=== PATIENT | female | born 1985 | race Caucasian/White ===

== ENCOUNTER 2022-08-20 16:38 | Outpatient (CLI) | payer BC, OTHER, SELFPAY ==
--- NOTE | 2022-08-20 16:30 | RT.EKG_ITS ---
APPROVED REPORT Exam: Resting ECG Reason for Exam: palpitations Patient Location: O HR:75 bpm ECG Measurements Heart Rate 75 AXIS [place] 123 P 59 QRSd 85 QRS 61 QT 401 T -1 QTc 448 Conclusion Sinus rhythm...normal P axis, V-rate 50- 99 Borderline low voltage, extremity leads...all extremity leads <0.6mV
== END 2022-08-20 16:39 | disposition home or self-care (01) ==
LOC: DI.CM 16:39
PROVIDERS: Visit Provider Physician Assistant
DX: R00.2 Palpitations (principal)
CPT/HCPCS: 93010

== ENCOUNTER 2022-08-20 17:59 | Outpatient (REF) | payer BC, SELFPAY ==
[2022-08-20 21:38] LABS: Abs Immature Grans 0.04 10^3/uL (0.0-0.06); Absolute Basophil Count 0.05 10^3/uL (0.0-0.2); Absolute Eosinophil Count 0.03 10^3/uL (0.0-0.7); Absolute Lymphocyte Count 2.92 10^3/uL (1.2-3.4); Absolute Monocyte Count 0.68 10^3/uL (0.1-0.8); Absolute Neutrophil Count 5.23 10^3/uL (1.2-6.7); Basophils % 0.6; Eosinophils % 0.3; HCT 35.9 % (36.0-46.0); HGB 11.1 g/dL (11.2-15.7); Immature Grans % 0.4; Lymphocytes % 32.6; MCHC 30.9 % (32.0-36.0); MCV 81 fL (80-95); MPV 10.3 fL (8.0-11.0); Monocytes % 7.6; Neutrophils % 58.5; Platelet Count 452 10^3/uL (130-400); RBC 4.44 10^6/uL (3.93-5.22); RDW 16.3 % (11.7-14.6); RDW-SD 47.9 fL; WBC 8.95 10^3/uL (4.4-10.8)
[2022-08-20 22:37] LABS: ALT 36 U/L (14-59); AST 30 U/L (15-37); Albumin 3.6 g/dL (3.4-5.0); Alkaline Phosphatase 52 U/L (46-116); Anion Gap 6.7 mmol/L (3-11); BUN 13 mg/dL (7-18); Bilirubin, Total 0.1 mg/dL (0.2-1.0); CO2 31.3 mmol/L (21.0-32.0); CREATININE 1.1 mg/dL (0.55-1.02); Calcium 8.5 mg/dL (8.5-10.1); Chloride 102 mmol/L (98-107); Glucose 76 mg/dL (74-106); Potassium 3.9 mmol/L (3.5-5.1); Sodium 140 mmol/L (136-145); TSH (W/Ref FT4) 1.87 uIU/mL (0.36-3.74); Total Protein 7.4 g/dL (6.4-8.2)
== END 2022-08-20 18:00 | disposition home or self-care (01) ==
LOC: NCHCN 17:59
PROVIDERS: Visit Provider Physician Assistant
DX: R94.31 Abnormal electrocardiogram [ECG] [EKG] (principal); R00.2 Palpitations; Z79.899 Other long term (current) drug therapy
CPT/HCPCS: 80053; 84443; 85025

== ENCOUNTER 2025-07-02 16:18 | Outpatient (CLI) | payer BC, SELFPAY | END 2025-07-02 18:15 | LOC: LBO 16:19 | PROVIDERS: Visit Provider Obstetrics & Gynecology | DX: Z34.90 Encounter for supervision of normal pregnancy, unspecified, unspecified trimester (principal) | CPT/HCPCS: 36415; 86850; 86900; 86901; 90384 ==

== ENCOUNTER 2025-07-02 16:40 | Outpatient (CLI) | payer BC, SELFPAY | END 2025-07-02 16:41 | disposition home or self-care (01) | LOC: BCD 16:41 | PROVIDERS: Visit Provider Obstetrics & Gynecology | DX: Z34.92 Encounter for supervision of normal pregnancy, unspecified, second trimester (principal); Z87.59 Personal history of other complications of pregnancy, childbirth and the puerperium | CPT/HCPCS: 96372 ==